=== PATIENT | male | born 1990 | race American Indian/Alaskan Native ===

== ENCOUNTER 2020-05-08 19:23 | Emergency (ER) | payer SELFPAY ==
--- NOTE | 2020-05-08 20:57 | Emergency Department Report ---
ED Head Injury/Laceration HPI - HPI Occurred When: Today Mechanism: Direct Blow (Was walking and accidentally ran into a wall earlier today) Location: Frontal Tetanus Status: Up to Date Symptoms: Loss of Consciousness: No, Nausea: No, Blurred Vision: No, Unusual Behavior: No, Headache: No, Swelling: Yes, Break in Skin: Yes, Bleeding: Yes ED General PMH - Past Medical History General Medical History: no medical history Surgical History: no surgical history - Social History Smoking Status: Never Smoker ED Review of Systems ROS: Stated complaint: EYE INJURY Other details as noted in HPI Comment: All other systems reviewed and negative Head Inj w/lac Physical Exam - Exam General: Vital signs noted. No distress. Alert and acting appropriately. Adult Head Front + Back: 1 - Laceration area jagged 2.5 cm Head: Yes PERRL, No Hemotympanum, No Hematoma/Ecchymosis, No Epistaxis, No Stepoff/Deformity, No Abrasion, No Foreign Body Laceration Location: Frontal (Right brow) Chest, Abd, & Ext: Yes Clear Lung Sounds, Yes Regular Heart Rhythm, No Neck Pain, No Chest Injury/Pain, No Heart Murmur, No Abdominal Tenderness, No Back Tenderness, No Extremity Injury Neuroligical (Head Inj W/O Lac: Yes Normal Speech, Yes Normal Gait, No Lethargy, No Disorientation, No Focal Numbness, No Focal Weakness - Laceration /Wound Repair Right Frontal Wound's Depth, Shape: linear Betadine Prep?: Yes Anesthesia: 1% Lidocaine Wound Debrided: minimal Wound Repaired With: sutures Suture Size/Type: 5:0 Number of Sutures: 4 Layer Closure?: No Sterile Dressing Applied?: Yes ED Disposition Clinical Impression: Laceration, Head injury Disposition: TO HOME OR SELFCARE Is pt being admited?: No Does the pt Need Aspirin: No Condition: Stable Instructions: How to Use Cold Therapy, [id number], Laceration Care, Adult, Sutures, Douglas, or Adhesive Wound Closure Additional Instructions: Please keep wound clean antibacterial soap and water and follow-up in 5 to 7 days to be evaluated for suture removal. Return to emergency department should you begin to lose any vision from your eye having uncontrollable dizziness or vomiting or severe headache not responding to [id number] medications Referrals: [facility] [Provider Group] - 3-5 Days
== END 2020-05-08 21:11 | disposition home or self-care (01) ==
LOC: ED 19:23
DX: S01.111A Laceration without foreign body of right eyelid and periocular area, initial encounter (principal); S09.90XA Unspecified injury of head, initial encounter; Z91.013 Allergy to seafood; X58.XXXA Exposure to other specified factors, initial encounter; Y93.89 Activity, other specified; Y92.89 Other specified places as the place of occurrence of the external cause; Y99.8 Other external cause status

== ENCOUNTER 2020-05-18 14:39 | Emergency (ER) | payer SELFPAY ==
[2020-05-18 15:32] VITALS: BP 123/64
--- NOTE | 2020-05-18 16:06 | Emergency Department Report ---
Suture/Staple Removal - [facility] Chief Complaint: Laceration/Recheck/Suture Stated Complaint: SUTURE REMOVAL Time Seen by Provider: 05/18/20 16:04 When Sutures or Blayne Placed: 11-14 Days Ago ED Review of Systems ROS: Stated complaint: SUTURE REMOVAL Other details as noted in HPI ED Past Medical Hx - Past Medical History Previous Medical History?: No - Surgical History Past Surgical History?: No - Social History Smoking Status: Never Smoker Substance Use Type: None Suture Removal Exam - Exam General: Vital signs noted. No distress. Alert and acting appropriately. Wound: No Pathologic Erythema, No Tenderness, No Drainage, No Pus, No Wound Dehiscence Other Systems: All other systems reviewed and are unremarkable. ED Course Vital Signs 05/18/20 15:31 Temperature 98.6 F Pulse Rate 63 Respiratory 16 Rate Blood Pressure 123/64 O2 Sat by Pulse 98 Oximetry Critical care attestation.: If time is entered above; I have spent that time in minutes in the direct care of this critically ill patient, excluding procedure time. ED Disposition Clinical Impression: Visit for suture removal Disposition: DC-01 TO HOME OR SELFCARE Is pt being admited?: No Does the pt Need Aspirin: No Condition: Stable
== END 2020-05-18 16:19 | disposition home or self-care (01) ==
LOC: ED 14:39
DX: S05.31XD Ocular laceration without prolapse or loss of intraocular tissue, right eye, subsequent encounter (principal); X58.XXXD Exposure to other specified factors, subsequent encounter

== ENCOUNTER 2021-10-31 12:37 | Emergency (ER) | payer SELFPAY ==
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
--- NOTE | 2021-10-31 17:44 | XRay Report ---
CHEST 2 VIEWS INDICATION / CLINICAL INFORMATION: rib pain. COMPARISON: None available. FINDINGS: SUPPORT DEVICES: None. HEART / MEDIASTINUM: No significant abnormality. LUNGS / PLEURA: No significant pulmonary or pleural abnormality. No pneumothorax. ADDITIONAL FINDINGS: No significant additional findings. IMPRESSION: 1. No acute findings. Signer Name: Mateo Romeor MD Signed: 10/31/2021 5:40 PM Workstation Name: [id number] [id number]
[2021-10-31 18:44] VITALS: BP 130/83
== END 2021-10-31 18:34 | disposition home or self-care (01) ==
LOC: ED 12:37
DX: M54.9 Dorsalgia, unspecified (principal); Z91.013 Allergy to seafood; V89.2XXA Person injured in unspecified motor-vehicle accident, traffic, initial encounter; Y93.89 Activity, other specified; Y92.89 Other specified places as the place of occurrence of the external cause; Y99.8 Other external cause status
CPT/HCPCS: 71046; 99283